=== PATIENT | male | born 1945 | race Caucasian/White ===

== ENCOUNTER 2019-06-11 07:20 | Inpatient (IN) | payer OTHER ==
[~2019-06-11] VITALS: Ht 177.8 cm; Wt 97.5 kg
[2019-06-11] MEDS ORDERED: LORAZEPAM 2MG/ML CPJ ONE (07:30)
[2019-06-11 07:50] LABS: BASOPHILS % 0.8 % (0.0-2.0); EOSINOPHILS % 2.9 % (0.0-5.0); HEMATOCRIT. 43.7 % (42.0-52.0); HEMOGLOBIN. 14.8 g/dL (14.0-18.0); LYMPHOCYTES % 25.9 % (20.0-50.0); MEAN CORPUSCULAR HEMOGLOBIN 30.2 pg (28.0-32.0); MEAN CORPUSCULAR VOLUME 89.6 fL (80.0-94.0); MEAN PLATELET VOLUME 8.5 fl (7.4-10.4); NEUTROPHILS % 64.4 % (40.0-76.0); PLATELET 271 x1000/uL (130-400); RED BLOOD CELL COUNT 4.88 mill/uL (4.7-6.1); RED CELL DISTRIBUTION WIDTH 13.6 % (11.6-14.6)
[2019-06-11 07:56] LABS: CHLORIDE 104 mEq/L (98-107)
[2019-06-11 07:58] LABS: PROTHROMBIN TIME 10.7 sec (9.6-11.0)
[2019-06-11 08:00] LABS: ETHANOL BLOOD < 10 mg/dL
[2019-06-11 08:03] LABS: LDL CHOLESTEROL 69 mg/dL (5-100)
[2019-06-11] MEDS ORDERED: SODIUM CHLORIDE 0.9% 1,000 ML IV ONE (08:07)
[2019-06-11] MEDS ORDERED: LEVETIRACETAM 1000MG/100ML 100 ML IV ONE (08:45)
[2019-06-11] MEDS ORDERED: ONDANSETRON HCL 4MG/2ML INJ IV PRN (10:00)
[2019-06-11] MEDS ORDERED: GUAIFENESIN 200MG/10ML SUGAR FREE UDC PO PRN (10:00)
[2019-06-11] MEDS ORDERED: ACETAMINOPHEN 325MG TABLET PO PRN (10:00)
[2019-06-11] MEDS ORDERED: TRAMADOL 50MG TABLET PO PRN (10:00)
[2019-06-11] MEDS ORDERED: DEXTROSE 50% WATER 50ML SYRINGE IV PRN (10:00)
[2019-06-11] MEDS ORDERED: MAGNESIUM/ALUMINUM HYDROXIDE/SIMETHICONE 30ML UDC PO PRN (10:00)
[2019-06-11] MEDS ORDERED: NITROGLYCERIN 0.4MG TABLET SL SL PRN (10:00)
[2019-06-11] MEDS ORDERED: CLONIDINE 0.1MG TABLET PO PRN (10:00)
[2019-06-11] MEDS ORDERED: LORAZEPAM 2MG/ML CPJ IV PRN (10:00)
[2019-06-11] MEDS ORDERED: DOCUSATE SODIUM 100MG CAPSULE PO PRN (10:00)
[2019-06-11] MEDS ORDERED: IPRATROPIUM/ALBUTEROL 0.5-3(2.5)MG/3ML NEB NEB PRN (10:00)
[2019-06-11] MEDS ORDERED: ZOLPIDEM TARTRATE 5MG TABLET PO PRN (10:00)
[2019-06-11] MEDS ORDERED: LORAZEPAM 2MG/ML CPJ IV ONE (11:00)
[2019-06-11 11:30] LABS: CLARITY URINE CLEAR (CLEAR); COLOR URINE YELLOW (YELLOW); KETONES URINE NEGATIVE (NEGATIVE); LEUKOCYTE ESTERASE URINE NEGATIVE (NEGATIVE); NITRITE URINE NEGATIVE (NEGATIVE); OCCULT BLOOD URINE NEGATIVE (NEGATIVE); PROTEIN URINE 2+ (NEGATIVE); SPECIFIC GRAVITY URINE 1.014 (1.005-1.030); UROBILINOGEN URINE 0.2 E.U./dL (0.2-1.0)
[2019-06-11 11:49] LABS: *BENZODIAZEPINES SCREEN URINE NEGATIVE (NEGATIVE); *COCAINE SCREEN URINE NEGATIVE (NEGATIVE); METHADONE URINE SCREEN NEGATIVE (NEGATIVE)
[2019-06-11 11:50] LABS: *AMPHETAMINES SCREEN URINE NEGATIVE (NEGATIVE); *BARBITURATES SCREEN URINE NEGATIVE (NEGATIVE); CANNABINOID URINE SCREEN NEGATIVE (NEGATIVE); OPIATES URINE SCREEN NEGATIVE (NEGATIVE); PHENCYCLIDINE URINE SCREEN NEGATIVE (NEGATIVE)
[2019-06-11] MEDS: BLOOD SUGAR DIAGNOSTIC STRIP TEST SCH ×3 (13:00→20:23)
[2019-06-11 13:28] VITALS: BP 143/66
[2019-06-11] MEDS ORDERED: INFLUENZA VIRUS VACCINE(AFLURIA) 0.5ML SYR IM ONE (14:45)
[2019-06-11] MEDS: LISINOPRIL 20MG TABLET PO SCH ×2 (15:25→20:37)
[2019-06-11] MEDS: ASPIRIN 325MG EC TABLET PO SCH (15:25)
[2019-06-11] MEDS: METOPROLOL TARTRATE 25MG TABLET PO SCH ×2 (15:25→20:37)
[2019-06-11] MEDS: ENOXAPARIN 40MG/0.4ML SYR SUBCUT SCH (15:26)
[2019-06-11 16:02] VITALS: BP 130/66
[2019-06-11] MEDS ORDERED: AMLO2.5T45 MT (16:33)
[2019-06-11] MEDS ORDERED: METO25TA6 MT (16:33)
[2019-06-11] MEDS ORDERED: GLIP5TAB12 MT (16:33)
[2019-06-11] MEDS ORDERED: CHOL20004 MT (16:33)
[2019-06-11] MEDS ORDERED: ASPI-1393 MT (16:33)
[2019-06-11] MEDS ORDERED: OMEP10CA5 MT (16:33)
[2019-06-11] MEDS ORDERED: LOSA25TA26 MT (16:33)
[2019-06-11] MEDS ORDERED: LINA5TAB MT (16:33)
[2019-06-11] MEDS ORDERED: METF-414 MT (16:33)
[2019-06-11 17:55] LABS: CREATINE KINASE 120 IU/L (39-308)
[2019-06-11 17:57] LABS: CREATINE KINASE MB FRACTION 1.9 ng/mL (0.5-3.6)
[2019-06-11] MEDS: INSULIN LISPRO 100 UNITS/ML SUBCUT SCH ×2 (18:24→20:23)
[2019-06-11 20:35] VITALS: BP 120/61
[2019-06-11] MEDS: LEVETIRACETAM 500MG/5ML CUP PO SCH (20:37)
[2019-06-11] MEDS: FAMOTIDINE 20MG TABLET PO SCH (20:38)
[2019-06-12 00:02] LABS: CREATINE KINASE 117 IU/L (39-308)
[2019-06-12 00:05] LABS: CREATINE KINASE MB FRACTION 1.3 ng/mL (0.5-3.6)
[2019-06-12 00:35] VITALS: BP 98/62
[2019-06-12 04:00] VITALS: BP 126/63
[2019-06-12] MEDS: ENOXAPARIN 40MG/0.4ML SYR SUBCUT SCH ×2 (05:04→18:50)
[2019-06-12] MEDS: BLOOD SUGAR DIAGNOSTIC STRIP TEST SCH ×4 (06:27→20:31)
[2019-06-12] MEDS: INSULIN LISPRO 100 UNITS/ML SUBCUT SCH ×4 (07:50→20:31)
[2019-06-12 08:00] VITALS: BP 145/60
[2019-06-12] MEDS: METOPROLOL TARTRATE 25MG TABLET PO SCH ×2 (09:00→20:56)
[2019-06-12] MEDS: LEVETIRACETAM 500MG/5ML CUP PO SCH (09:00)
[2019-06-12] MEDS: ASPIRIN 325MG EC TABLET PO SCH (09:11)
[2019-06-12] MEDS: FAMOTIDINE 20MG TABLET PO SCH ×2 (09:11→20:55)
[2019-06-12] MEDS: LISINOPRIL 20MG TABLET PO SCH ×2 (09:14→20:56)
[2019-06-12] MEDS: LEVETIRACETAM 500MG TABLET PO SCH ×2 (11:10→20:55)
[2019-06-12 20:00] VITALS: BP 127/62
[2019-06-13] VITALS: BP 136/64
[2019-06-13 04:00] VITALS: BP 144/69
[2019-06-13] MEDS: ENOXAPARIN 40MG/0.4ML SYR SUBCUT SCH (05:34)
[2019-06-13] MEDS: BLOOD SUGAR DIAGNOSTIC STRIP TEST SCH (06:20)
[2019-06-13 08:00] VITALS: BP 156/71
[2019-06-13] MEDS: INSULIN LISPRO 100 UNITS/ML SUBCUT SCH (08:38)
[2019-06-13] MEDS: ASPIRIN 325MG EC TABLET PO SCH (09:42)
[2019-06-13] MEDS: FAMOTIDINE 20MG TABLET PO SCH (09:42)
[2019-06-13] MEDS: METOPROLOL TARTRATE 25MG TABLET PO SCH (09:42)
[2019-06-13] MEDS: LEVETIRACETAM 500MG TABLET PO SCH (09:42)
[2019-06-13] MEDS: LISINOPRIL 20MG TABLET PO SCH (09:44)
[2019-06-13 10:43] VITALS: BP 156/71
== END 2019-06-13 11:10 | disposition home or self-care (01) | DRG 101 ==
LOC: ER 07:20 → 6WST 08:45 → EDBEDREQ 09:08 → EDBEDREQSVC 09:08 → ENRESERV 11:04
PROVIDERS: ADMIT Internal Medicine; ATTEND Internal Medicine
PROC: 4A00X4Z Measurement of Central Nervous Electrical Activity, External Approach (ICD-10-PCS; principal; 2019-06-12)
DX: G40.89 Other seizures (principal); I10 Essential (primary) hypertension; E11.65 Type 2 diabetes mellitus with hyperglycemia; E66.9 Obesity, unspecified; Z79.4 Long term (current) use of insulin; Z79.899 Other long term (current) drug therapy; Z86.73 Personal history of transient ischemic attack (TIA), and cerebral infarction without residual deficits; Z68.30 Body mass index [BMI] 30.0-30.9, adult
CPT/HCPCS: 36415; 70551; 71045; 80061; 80305; 80320; 81003; 82550; 82553; 82962; 83036; 83721; 84484; 90686; 93005; 93970; 96365; 99291; J1650; J1815; J1953; J2060; J7030; G0480